=== PATIENT | female | born 1985 | race Caucasian/White ===

== ENCOUNTER 2017-09-13 00:18 | Emergency (ER) | payer BC, OTHER ==
[~2017-09-13] VITALS: Ht 152.4 cm; Wt 66.6 kg
[~2017-09-13 00:18] MED LIST: IBUP100T33
[2017-09-13 00:29] VITALS: Ht 152.4 cm; Wt 66.6 kg
[2017-09-13 02:58] LABS: BASOPHILS % 0.3 % (0.0-2.0); EOSINOPHILS % 0.2 % (0.0-7.0); HEMOGLOBIN 12.3 g/dl (12.0-16.0); LYMPHOCYTES # 2.7 10^3/ul (0.8-2.9); MEAN CORPUSCULAR HEMOGLOBIN 26.7 pg (29.0-33.0); MEAN CORPUSCULAR HGB CONC 32.4 g/dl (32.0-37.0); MEAN CORPUSCULAR VOLUME 82.4 fl (82.0-101.0); MEAN PLATELET VOLUME 12.6 fl (7.4-10.4); MONOCYTE # 0.7 10^3/ul (0.3-0.9); MONOCYTES % 7.3 % (0.0-11.0); NEUTROPHIL # 6.1 10^3/ul (1.6-7.5); PLATELET COUNT 183 10^3/UL (140-415); RED BLOOD COUNT 4.61 10^6/ul (4.20-5.40); RED CELL DISTRIBUTION WIDTH 14.2 % (11.5-14.5); WHITE BLOOD COUNT 9.6 10^3/ul (4.8-10.8)
[2017-09-13 03:20] LABS: ADD UMIC YES; UR ASCORBIC ACID NEGATIVE (NEGATIVE); UR BACTERIA FEW /HPF (NONE SEEN); UR BILIRUBIN (Dip) NEGATIVE (NEGATIVE); UR BLOOD (Dip) 1+ mg/dL (NEGATIVE); UR CLARITY SLIGHTLY CLOUDY (CLEAR); UR COLOR YELLOW (YELLOW); UR GLUCOSE (Dip) NEGATIVE (NEGATIVE); UR KETONES (Dip) NEGATIVE (NEGATIVE); UR LEUKOCYTE ESTERASE (Dip) NEGATIVE Leu/ul (NEGATIVE); UR MUCUS FEW /HPF (NONE SEEN); UR NITRITE (Dip) NEGATIVE (NEGATIVE); UR RBC 8 /HPF (0-5); UR SPECIFIC GRAVITY (Dip) 1.026 (1.003-1.030); UR SQUAMOUS EPITHELIAL CELL FEW /HPF (FEW); UR TOTAL PROTEIN (Dip) NEGATIVE (NEGATIVE); UR UROBILINOGEN (Dip) 1+ mg/dL (NEGATIVE)
[2017-09-13 03:31] LABS: BARBITURATES Negative (NEGATIVE); BENZODIAZEPINES Negative (NEGATIVE); CANNABINOIDS Negative (NEGATIVE); COCAINE Negative (NEGATIVE); OPIATES Negative (NEGATIVE)
[2017-09-13 03:33] LABS: ALANINE AMINOTRANSFERASE 24 IU/L (13-69); ALBUMIN 4.3 g/dl (3.3-4.9); ALKALINE PHOSPHATASE 96 IU/L (42-121); ANION GAP 17 (8-16); ASPARTATE AMINO TRANSFERASE 19 IU/L (15-46); BILIRUBIN,INDIRECT 0.1 mg/dl (0-1.1); BILIRUBIN,TOTAL 0.1 mg/dl (0.2-1.3); BLOOD UREA NITROGEN 8 mg/dl (7-20); CARBON DIOXIDE 25 mmol/L (21-31); CHLORIDE 106 mmol/L (97-110); CREATININE 0.76 mg/dl (0.44-1.00); GLUCOSE 108 mg/dl (70-220); POTASSIUM 3.7 mmol/L (3.5-5.1); SODIUM 144 mmol/L (135-144); TOTAL PROTEIN 7.6 g/dl (6.1-8.1)
[2017-09-13 03:34] LABS: ACETAMINOPHEN < 10.0 ug/ml (10.0-30.0); ETHANOL < 10.0 mg/dl; SALICYLATE < 1.0 mg/dl (5.0-30.0)
[2017-09-13 03:35] VITALS: BP 125/78; PULSE 75; RESP 20; TEMP 98.7
--- NOTE | 2017-09-13 03:35 | ERD ---
ER Documentation Chief Complaint Chief Complaint Pt. have been walking at night in the house and speakin "nonsense" no SI/HI HPI 31-year-old female with severe anxiety. Denies auditory visual hallucinations. Denies suicidal homicidal ideation. Patient states that she feels like she is "foggy". Patient already on Zoloft. ROS All systems reviewed and are negative except as per history of present illness. Medications Home Meds Reported Medications Ibuprofen (Motrin) 100 Mg Tablet 04/27/10 Allergies Allergies: Coded Allergies: No Known Allergies (Verified Allergy, Mild, 04/27/10) PMhx/Soc History of Surgery: No Anesthesia Reaction: No Hx Neurological Disorder: No Hx Respiratory Disorders: No Hx Cardiac Disorders: No Hx Psychiatric Problems: No Hx Miscellaneous Medical Probl: Yes (Depression, DM) Hx Alcohol Use: No Hx Substance Use: No Hx Tobacco Use: No Smoking Status: Never smoker Physical Exam Vitals Vital Signs Date Time Temp Pulse Resp B/P Pulse Ox O2 Delivery O2 Flow Rate FiO2 09/13/17 00:29 98.7 82 20 130/87 99 Physical Exam Const: [] Head: Atraumatic Eyes: Normal Conjunctiva ENT: Normal External Ears, Nose and Mouth. Neck: Full range of motion..~ No meningismus. Resp: Clear to auscultation bilaterally Cardio: Regular rate and rhythm, no murmurs Abd: Soft, non tender, non distended. Normal bowel sounds Skin: No petechiae or rashes Back: No midline or flank tenderness Ext: No cyanosis, or edema Neur: Awake and alert Psych: Normal Mood and Affect Result Diagram: 09/13/17 0238 Results 24 hrs Laboratory Tests Test 09/13/17 02:20 09/13/17 02:38 09/13/17 02:45 Urine Color YELLOW Urine Clarity SLIGHTLY CLOUDY Urine pH 5.0 Urine Specific [place] 1.026 Urine Ketones NEGATIVEmg/dL Urine Nitrite NEGATIVEmg/dL Urine Bilirubin NEGATIVEmg/dL Urine Urobilinogen 1+mg/dL Urine Leukocyte Esterase NEGATIVELeu/ul Urine Microscopic RBC 8/HPF Urine Microscopic WBC 9/HPF Urine Squamous Epithelial Cells FEW/HPF Urine Calcium Oxalate Crystals MODERATE/HPF Urine Bacteria FEW/HPF Urine Mucus FEW/HPF Urine Hemoglobin 1+mg/dL Urine Glucose NEGATIVEmg/dL Urine Total Protein NEGATIVEmg/dl White Blood Count 9.610^3/ul Red Blood Count 4.6110^6/ul Hemoglobin 12.3g/dl Hematocrit 38.0% Mean Corpuscular Volume 82.4fl Mean Corpuscular Hemoglobin 26.7pg Mean Corpuscular Hemoglobin Concent 32.4g/dl Red Cell Distribution Width 14.2% Platelet Count 53342^3/UL Mean Platelet Volume 12.6fl Neutrophils % 64.0% Lymphocytes % 28.0% Monocytes % 7.3% Eosinophils % 0.2% Basophils % 0.3% Nucleated Red Blood Cells % 0.0/100WBC Neutrophils # 6.110^3/ul Lymphocytes # 2.710^3/ul Monocytes # 0.710^3/ul Eosinophils # 0.010^3/ul Basophils # 0.010^3/ul Nucleated Red Blood Cells # 0.010^3/ul Urine Opiates Screen Negative Urine Barbiturates Negative Urine Amphetamines Screen Negative Urine Benzodiazepines Screen Negative Urine Cocaine Screen Negative Urine Cannabinoids Negative Procedures/MDM Patient's behavioral symptoms have stabilized while in the department. Patient is medically cleared and appropriate for psychiatric evaluation and work up. No e/o neurologic, toxic, infectious, or metabolic cause. Found to be stable for outpatient management for telemetry psychiatry. Patient will be discharged home. Departure Diagnosis: Primary Impression: Anxiety Condition: Stable Patient Instructions: Anxiety Reaction RADHA HARTMANN Sep 13, 2017 03:35
--- NOTE | 2017-09-13 03:37 | PSY ---
Date/Time of Note Date/Time of Note DATE: 09/13/17 TIME: 03:27 Psychiatric Subjective Eval Consent Pt consented to telemedicine: Yes Subjective Evaluation Patient location: emergency Chief Complaint: Pt. have been walking at night in the house and speakin "nonsense" no SI/HI Reason for consult: " i have been feeling tired and not sleeping well" History of present illness patient is a 31 yo female with PPH of depression who lives with her parents , employed who came to the ER due to feeling "tired with lack of sleep", she states that she was started on zoloft 50 mg one week ago for depression and anxiety and states that she has been feeling less depressed and less anxious but feels that she is sleeping less and tired at the end of the day, she denies any past or current manic or psychotic symptoms, denies any current si or hi, denies any drug or alcohol abuse, not currently in psychotherapy , never been admitted to psych before, states that she started to get anxious over the summer due to multiple stressors. Past psychiatric history denies Hospitalization: no Family History denies Medical history none Allergies: Coded Allergies: No Known Allergies (Verified Allergy, Mild, 04/27/10) Substance Abuse Substance use: No known substance abuse Social History Marital status: single Level of education: hs DPA/Conservatorship: No Occupation/[employer]: employed Psychiatric Objective Eval Review of Systems: Review of Systems: Not Applicable Physical Examination: Sleep: Insomnia Appetite: Decreased Energy: Decreased Interest: Decreased Mental Status Examination: Appearance: Groomed Eye Contact: Good Psychomotor Activity: Normal Behavior: Cooperative Speech: Clear AFFECT: Appropriate Mood: Anxious Though Process: Linear Thought Content: Normal Suicidal: No Homicidal: No On 72 hour hold: No Orientation: x4 Cognition: Alert Insight: Intact Judgement: Intact Attention Span: Intact Laboratory Results Laboratory Tests Test 09/13/17 02:20 09/13/17 02:38 Urine Color YELLOW Urine Clarity SLIGHTLY CLOUDY Urine pH 5.0 Urine Specific [place] 1.026 Urine Ketones NEGATIVEmg/dL Urine Nitrite NEGATIVEmg/dL Urine Bilirubin NEGATIVEmg/dL Urine Urobilinogen 1+mg/dL Urine Leukocyte Esterase NEGATIVELeu/ul Urine Microscopic RBC 8/HPF Urine Microscopic WBC 9/HPF Urine Squamous Epithelial Cells FEW/HPF Urine Calcium Oxalate Crystals MODERATE/HPF Urine Bacteria FEW/HPF Urine Mucus FEW/HPF Urine Hemoglobin 1+mg/dL Urine Glucose NEGATIVEmg/dL Urine Total Protein NEGATIVEmg/dl White Blood Count 9.610^3/ul Red Blood Count 4.6110^6/ul Hemoglobin 12.3g/dl Hematocrit 38.0% Mean Corpuscular Volume 82.4fl Mean Corpuscular Hemoglobin 26.7pg Mean Corpuscular Hemoglobin Concent 32.4g/dl Red Cell Distribution Width 14.2% Platelet Count 38670^3/UL Mean Platelet Volume 12.6fl Neutrophils % 64.0% Lymphocytes % 28.0% Monocytes % 7.3% Eosinophils % 0.2% Basophils % 0.3% Nucleated Red Blood Cells % 0.0/100WBC Neutrophils # 6.110^3/ul Lymphocytes # 2.710^3/ul Monocytes # 0.710^3/ul Eosinophils # 0.010^3/ul Basophils # 0.010^3/ul Nucleated Red Blood Cells # 0.010^3/ul Assessment and Plan Assessment/Diagnosis Horatio I: mood do nos anxiety do nos Horatio II: deferred Horatio III: as per record Horatio IV: poor social support Horatio V: gaf 25 Recommendation/Plan Medication Management increase zoloft to 75 mg po qd for 2 weeks and ativan 1mg po bid for one week for anxiety Follow-up/Disposition In my opinion,for this patient, outpatient care is the least restrictive option. Based on available evidence, ~this condition CAN be safely treated at a lower level of care effective today. Patient is stable without ~clear and convincing evidence of imminent danger due to mental illness that requires acute inpatient psychiatric ~care as the least restrictive alternative. Please discharge patient with referral for follow up to a outpatient mental health clinic for psychotherapy and medication. ELLIE CABAN MD Sep 13, 2017 03:37
== END 2017-09-13 03:36 | disposition home or self-care (01) ==
LOC: E/R 00:18
DX: F41.9 Anxiety disorder, unspecified (principal); E11.9 Type 2 diabetes mellitus without complications
CPT/HCPCS: 36415; 80053; 80306; 80307; 81001; 85025; 99283